=== PATIENT | female | born 1995 ===

== ENCOUNTER 2021-08-08 15:12 | Outpatient (CLI) | payer SELFPAY ==
--- NOTE | 2021-08-08 19:07 | Ultrasound Report ---
ULTRASOUND OBSTETRIC LIMITED INDICATION / CLINICAL INFORMATION: vaginal bleeding, look at placenta. Clinical Gestational Age (GA) in weeks, days: 26 weeks 3 days TECHNIQUE: Transabdominal. COMPARISON: None available. FINDINGS: Single live intrauterine in breech presentation with heart rate measuring 153 bpm. Po sterior placenta is free of the os. There is no placental lifting or separation. No retroplacental he matoma. IMPRESSION: Single live intrauterine . No significant abnormality. Posterior placenta is free of the os. No evidence of placental abruption. Signer Name: Armen Apple MD Signed: 08/08/2021 7:02 PM Workstation Name: [id number]
[2021-08-08 19:44] LABS: Bacteria,Urine 2+ /HPF (Negative); RBC,Urine < 1.0 /HPF (0.0-6.0)
[2021-08-08 20:33] LABS: Bilirubin,Urine NEG (Negative); Color,Urine Colorless (Yellow)
[2021-08-08 20:34] LABS: Blood,Urine NEG (Negative); Protein,Urine <15 mg/dL mg/dL (Negative); Urobilinogen,Urine < 2.0 mg/dL (<2.0)
[2021-08-08 20:53] VITALS: BP 99/60
== END 2021-08-08 20:54 | disposition home or self-care (01) ==
LOC: TRG 15:12 → APU 15:12 → TRG 20:54
PROVIDERS: ATTEND Obstetrics & Gynecology
DX: O46.92 Antepartum hemorrhage, unspecified, second trimester (principal); Z3A.26 26 weeks gestation of pregnancy
CPT/HCPCS: 76815; 81001; 87086